=== PATIENT | male | born 1960 | race African-American/Black ===

== ENCOUNTER 2018-12-25 10:05 | Emergency (ER) | payer BC, OTHER ==
[~2018-12-25] VITALS: Ht 167.6 cm; Wt 85.0 kg
[2018-12-25] MEDS ORDERED: ACET-66 PO (10:17)
[2018-12-25 10:37] VITALS: BP 129/74
== END 2018-12-25 13:10 | disposition home or self-care (01) ==
LOC: EMS 10:06
DX: S13.9XXA Sprain of joints and ligaments of unspecified parts of neck, initial encounter (principal); Z88.6 Allergy status to analgesic agent; V43.52XA Car driver injured in collision with other type car in traffic accident, initial encounter; Y93.89 Activity, other specified; Y92.488 Other paved roadways as the place of occurrence of the external cause; Y99.8 Other external cause status
CPT/HCPCS: 70450; 72100; 72125